=== PATIENT | male | born 1950 | race Caucasian/White ===

== ENCOUNTER 2017-02-28 00:21 | Emergency (ER) | payer MEDICARE, OTHER ==
[2017-02-28 00:36] VITALS: BP 166/73
[2017-02-28] MEDS ORDERED: CEPHALEXIN 500 MG CAPSULE PO ONE (00:36)
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
== END 2017-02-28 02:12 | disposition home or self-care (01) ==
LOC: ER 00:21
DX: S71.102A Unspecified open wound, left thigh, initial encounter (principal); W34.00XA Accidental discharge from unspecified firearms or gun, initial encounter; Y93.89 Activity, other specified; E10.9 Type 1 diabetes mellitus without complications
CPT/HCPCS: 99283; 73552; A9270